=== PATIENT | female | born 1990 | race Caucasian/White ===

== ENCOUNTER 2022-10-08 08:07 | Outpatient (OUT) | payer MEDICAID, SELFPAY ==
--- NOTE | 2022-10-08 08:53 | MR_ITS ---
The [address] [address] Patient Name: ELIZABETH JACOBS MRN: [id number] date: 1990 Sex: F Assigned Patient Location: MRI Current Patient Location: MRI Accession/Order Number: [id number] Exam Date: 10/08/2022 08:25 Report Date: 10/08/2022 09:50 At the request of: NON-STAFF PHYSICIAN Procedure: MR head/brain wo/w con MR head/brain wo/w con COMPARISON: [address] CLINICAL HISTORY: Headaches. Weakness TECHNIQUE: Sagittal and axial T1, axial T2 FSE, axial flair, axial DWI, axial and coronal T1 post 19 cc Dotarem FINDINGS: There is no diffusion abnormality. The brain demonstrates normal morphology and signal. There is no mass, mass effect, nor hydrocephalus. The vascular flow voids are patent. Postcontrast, there is no abnormal enhancement. The dural sinuses are patent. The orbits, sella, craniocervical junction are unremarkable.. There is diffuse, heterogeneous signal identified in both parotid glands with mild enhancement. No focal abnormality IMPRESSION: NO MRI EVIDENCE FOR ACUTE ISCHEMIA. UNREMARKABLE MR APPEARANCE OF THE BRAIN WITH AND WITHOUT CONTRAST. MILD SINUS MUCOSAL DISEASE. HETEROGENEOUS PAROTID GLANDS WITH MILD ENHANCEMENT THIS CAN BE SEEN WITH COLLAGEN VASCULAR DISEASES SUCH SJOGREN'S BUT SHOULD BE CORRELATED WITH CLINICAL FINDINGS Electronically authenticated by: JAMES GIL Date: 10/08/2022 09:50
== END 2022-10-08 08:08 ==
DX: R53.1 Weakness (principal); R41.3 Other amnesia
CPT/HCPCS: 70553; A9575